=== PATIENT | female | born 1960 | race Caucasian/White ===

== ENCOUNTER 2016-09-29 01:59 | Emergency (ER) | payer OTHER ==
[2016-09-29 02:37] LABS: CALCIUM 8.7 mg/dL (8.5-10.1); CARBON DIOXIDE 22.5 mmol/L (21-32); CREATININE SERUM 1.3 mg/dL (0.6-1.0); POTASSIUM SERUM 3.8 mmol/L (3.5-5.1)
[2016-09-29 02:40] LABS: BASOPHIL % 0.3 % (0-2); PLATELET COUNT 270 x10^3mcL (130-400); RED CELL DISTRIBUTION WIDTH 13.8 % (11.5-14.5)
[2016-09-29 02:42] LABS: ALBUMIN 3.4 g/dL (3.4-5.0); BILIRUBIN TOTAL 0.3 mg/dL (0.20-1.00); TOTAL PROTEIN, SERUM 7.5 g/dL (6.4-8.2)
[2016-09-29 03:22] VITALS: BP 135/74
== END 2016-09-29 03:22 | disposition home or self-care (01) ==
LOC: ED 01:59
PROVIDERS: Emergency Medicine
DX: R00.2 Palpitations (principal); R11.2 Nausea with vomiting, unspecified; F32.9 Major depressive disorder, single episode, unspecified; E11.9 Type 2 diabetes mellitus without complications; E78.00 Pure hypercholesterolemia, unspecified
CPT/HCPCS: Q0092

== ENCOUNTER 2017-09-29 19:03 | Emergency (ER) | payer OTHER ==
[~2017-09-29] VITALS: Ht 144.8 cm; Wt 515.3 kg
[2017-09-29 19:09] VITALS: BP 130/76
== END 2017-09-29 20:14 | disposition home or self-care (01) ==
LOC: ED 19:03
DX: B02.9 Zoster without complications (principal); E11.9 Type 2 diabetes mellitus without complications; E78.00 Pure hypercholesterolemia, unspecified

== ENCOUNTER 2018-02-07 02:47 | Emergency (ER) | payer OTHER ==
[~2018-02-07] VITALS: Ht 157.5 cm; Wt 53.2 kg
[2018-02-07 02:52] VITALS: Ht 157.5 cm; Wt 53.2 kg
[2018-02-07 03:25] LABS: microscopic required? NO
[2018-02-07 03:33] LABS: PLATELET COUNT 276 x10^3mcL (130-400); RED CELL DISTRIBUTION WIDTH 12.4 % (11.5-14.5)
[2018-02-07 03:39] LABS: urine erythrocyte NEGATIVE (NEGATIVE)
[2018-02-07 03:41] LABS: BASOPHIL % 2.8 % (0-2)
[2018-02-07 04:01] LABS: CARBON DIOXIDE 24.2 mmol/L (21-32); CREATININE SERUM 1.3 mg/dL (0.6-1.0); POTASSIUM SERUM 4.2 mmol/L (3.5-5.1)
[2018-02-07 04:06] LABS: ALBUMIN 3.8 g/dL (3.4-5.0); BILIRUBIN TOTAL 0.64 mg/dL (0.20-1.00)
[2018-02-07 04:22] LABS: TOTAL PROTEIN, SERUM 8.3 g/dL (6.4-8.2)
[2018-02-07 04:51] VITALS: BP 137/66
== END 2018-02-07 04:51 | disposition home or self-care (01) ==
LOC: ED 02:47
PROVIDERS: Emergency Medicine
DX: N39.0 Urinary tract infection, site not specified (principal); F32.9 Major depressive disorder, single episode, unspecified; E78.00 Pure hypercholesterolemia, unspecified; E11.9 Type 2 diabetes mellitus without complications
CPT/HCPCS: J0696; J2405; J3490; J7030

== ENCOUNTER 2018-09-18 21:45 | Emergency (ER) | payer OTHER ==
[~2018-09-18] VITALS: Ht 144.8 cm; Wt 54.9 kg
[2018-09-18 21:52] VITALS: Ht 144.8 cm; Wt 54.9 kg
[2018-09-18 22:37] LABS: BASOPHIL % 0.7 % (0-2); PLATELET COUNT 240 x10^3mcL (130-400); RED CELL DISTRIBUTION WIDTH 13.6 % (11.5-14.5)
[2018-09-18 23:22] LABS: ALBUMIN 3.5 g/dL (3.4-5.0); ALKALINE PHOSPHATASE 99 U/L (46-116); ALT/SGPT 20 U/L (14-59); AMYLASE 107 U/L (25-115); AST/SGOT 25 U/L (15-37); BILIRUBIN TOTAL 0.3 mg/dL (0.20-1.00); CARBON DIOXIDE 22.6 mmol/L (21-32); CHLORIDE SERUM 100 mmol/L (98-107); GFR1 > 60 mL/min; GLUCOSE SERUM 260 mg/dL (74-106); LIPASE 193 IU/L (73-393); SODIUM SERUM 134 mmol/L (136-145); TOTAL PROTEIN, SERUM 7.5 g/dL (6.4-8.2)
[2018-09-18 23:58] VITALS: BP 140/67
== END 2018-09-18 23:58 | disposition home or self-care (01) ==
LOC: ED 21:45
PROVIDERS: Emergency Medicine
DX: K31.84 Gastroparesis (principal); E11.43 Type 2 diabetes mellitus with diabetic autonomic (poly)neuropathy; E78.00 Pure hypercholesterolemia, unspecified
CPT/HCPCS: J2405; J7030